=== PATIENT | male | born 1995 | race Caucasian/White ===

== ENCOUNTER 2022-03-06 17:44 | Emergency (ER) | payer BC, SELFPAY ==
[2022-03-06 17:59] VITALS: BP 145/99; PULSE 108; RESP 16; TEMP 36.8; O2SAT 98
--- NOTE | 2022-03-06 18:06 | ED.EAR ---
HPI - Ear Problem General Chief complaint: Ear Stated complaint: Sore Throat/ Ears Irritation Time Seen by Provider: 03/06/22 18:06 Source: patient Mode of arrival: ambulatory Limitations: no limitations History of Present Illness HPI Narrative: Brennan is a 27-year-old male patient presenting to clinic today with complaints of sore throat and ear pain x4 days. States he started to lose his voice this morning. Related Data Allergies Allergy/AdvReac Type Severity Reaction Status Date / Time No Known Allergies Allergy Mild Verified 03/06/22 18:07 Review of Systems Review of Systems: Pertinent positives per HPI. Patient denies any fever, chills, rash, headache, visual changes, dizziness, shortness of breath, chest pain, palpitations, nausea, vomiting, diarrhea, constipation, abdominal pain, or any urinary issues. PMFSH Comments At the time of my signature, I reviewed and agree with the nursing past medical, surgical, social, and family history. There is no relevant family history pertinent to the patient complaint. Exam Narrative: General: Well-developed, obese, in no apparent distress Head: Normocephalic, atraumatic Eyes: Pupils equally round and reactive to light bilaterally, EOM intact, sclera and conjunctive clear, no discharge, lids normal Ears: TMs intact and clear, ear canals clear, no drainage, grossly hearing normal. Nose: Nares patent, Clear nasal discharge, no inflammation, no sinus tenderness. Mouth: Oral pharynx without lesions or masses, good dentition, MMM. oropharynx red with bilateral tonsillar enlargement and exudate Neck: Supple, trachea midline, mild enlargement of anterior or posterior cervical nodes, no thyroid masses or goiter palpable. Cardio: Regular rate and rhythm, s1 and s2 normal, no murmur appreciated. Resp: Clear to auscultation bilaterally, no rhonchi, rales, wheezing or rubs Course Course Emergency Course: Portions of this record may have been created with voice recognition software. Level of Care: Express Care Visit Vital Signs Vital signs: Vital Signs Temperature 36.8 C 03/06/22 17:59 Pulse Rate 108 H 03/06/22 17:59 Respiratory Rate 16 03/06/22 17:59 Blood Pressure 145/99 H 03/06/22 17:59 Pulse Oximetry 98 03/06/22 17:59 Oxygen Delivery Room Air 03/06/22 17:59 Temperature 36.8 C 03/06/22 17:59 Pulse Rate 108 H 03/06/22 17:59 Respiratory Rate 16 03/06/22 17:59 Blood Pressure 145/99 H 03/06/22 17:59 Pulse Oximetry 98 03/06/22 17:59 Oxygen Delivery Room Air 03/06/22 17:59 Vital signs reviewed Medical Decision Making MDM Narrative Medical decision making narrative: At the time of the patient is resting comfortably on the exam table. strep screen was positive in the clinic today. Prescription for amoxicillin was sent to the pharmacy and supportive measures were discussed with the patient he voiced understanding discharge instructions agrees to treatment plan. Differential Diagnosis Differential Diagnosis: Otitis media, otitis externa, and upper respiratory infections, strep pharyngitis Vital Signs Vital Signs: Vital Signs Temperature 36.8 C 03/06/22 17:59 Pulse Rate 108 H 03/06/22 17:59 Respiratory Rate 16 03/06/22 17:59 Blood Pressure 145/99 H 03/06/22 17:59 Pulse Oximetry 98 03/06/22 17:59 Oxygen Delivery Room Air 03/06/22 17:59 Temperature 36.8 C 03/06/22 17:59 Pulse Rate 108 H 03/06/22 17:59 Respiratory Rate 16 03/06/22 17:59 Blood Pressure 145/99 H 03/06/22 17:59 Pulse Oximetry 98 03/06/22 17:59 Oxygen Delivery Room Air 03/06/22 17:59 Discharge Plan Discharge Clinical Impression: Strep pharyngitis Patient Disposition: Home, Self-Care Condition: Stable Instructions: Antibiotic Form, Strep Throat (ED) Additional Instructions: Strep screen was positive in the clinic today Take prescription medications only as prescribed- amoxicillin Change toothbrush in
== END 2022-03-06 18:12 | disposition home or self-care (01) ==
PROVIDERS: Emergency Provider Nurse Practitioner Family; PCP Family Medicine Sports Medicine
DX: J02.0 Streptococcal pharyngitis (principal)
CPT/HCPCS: 87880; 99213; G0463

== ENCOUNTER 2022-12-20 10:38 | Emergency (ER) | payer BC, SELFPAY ==
[2022-12-20 10:53] VITALS: BP 139/92; PULSE 118; RESP 24; TEMP 36.9; O2SAT 97
--- NOTE | 2022-12-20 11:40 | ED.URI ---
HPI - URI/Sore Throat General Chief Complaint: Upper Respiratory Infection Stated Complaint: feeling run down hard to breathe Time Seen by Provider: 12/20/22 11:18 Source: patient and RN notes reviewed Mode of arrival: ambulatory Limitations: no limitations History of Present Illness HPI Narrative: Patient presents today complaining of fever up to 104, nasal congestion, fatigue since yesterday. Denies cough, sore throat. Denies known sick contacts. He has been taking DayQuil, NyQuil, and vitamin-C with mild relief. Denies history of asthma or COPD. He is a nonsmoker. Related Data Allergies Allergy/AdvReac Type Severity Reaction Status Date / Time No Known Allergies Allergy Mild Verified 03/06/22 18:07 Review of Systems Review of Systems: CONSTITUTIONAL: Denies body aches, chills, or sweats.+ fever, fatigue EYES: Denies visual changes, redness, or discharge. ENT: Denies rhinorrhea, sore throat, or otalgia.+ congestion CARDIOVASCULAR: Denies chest pain, palpitations, or edema. RESPIRATORY: Denies cough or dyspnea. GASTROINTESTINAL: Denies abdominal pain, nausea, vomiting, or diarrhea. GENITOURINARY: Denies dysuria or hematuria. SKIN: Denies rash, itching, or wounds. MUSCULOSKELETAL: Denies back pain, joint pain, or myalgia. NEUROLOGIC: Denies headache, numbness, tingling, or weakness. PSYCH: Denies depression or anxiety. PMFSH Comments At time of signature, I have reviewed and agree with nursing past medical, surgical, social and family history unless otherwise noted. Please see nursing chart for further information. There is no relevant family history pertinent to the presenting complaint Exam Narrative: GENERAL: Mildly ill-appearing, well-nourished, and in no acute distress. HEAD: Normocephalic, atraumatic. EYES: EOMI. No redness or drainage. Conjunctivae normal. ENT: Mucous membranes pink and moist. Nares congested. No rhinorrhea. TMs normal bilaterally. Throat erythematous, mildly edematous with exudate. Tonsils 3+. Uvula midline. NECK: Normal AROM. Supple. No lymphadenopathy. CHEST: No respiratory distress. Clear to auscultation. HEART: Regular rhythm. + t tachycardia. No murmur appreciated. Normal peripheral pulses. EXTREMITIES: Normal range of motion. No edema. SKIN: Warm, dry, no rash. Capillary refill normal. Normal skin turgor. NEURO: No focal deficits. Alert and oriented x3. Gait steady. PSYCH: Normal affect. No signs of depression or anxiety. Course Course Level of Care: Express Care Visit Vital Signs Vital signs: Vital Signs Temperature 98.4 F 12/20/22 10:53 Pulse Rate 118 H 12/20/22 10:53 Respiratory Rate 24 H 12/20/22 10:53 Blood Pressure 139/92 H 12/20/22 10:53 Pulse Oximetry 97 12/20/22 10:53 Oxygen Delivery Room Air 12/20/22 10:53 Temperature 98.4 F 12/20/22 10:53 Pulse Rate 118 H 12/20/22 10:53 Respiratory Rate 24 H 12/20/22 10:53 Blood Pressure 139/92 H 12/20/22 10:53 Pulse Oximetry 97 12/20/22 10:53 Oxygen Delivery Room Air 12/20/22 10:53 Reviewed. Patient was not tachypnea during my exam. MDM - URI/Sore Throat MDM Narrative Medical decision making narrative: Rapid strep positive. COVID and influenza are negative. Prescription for amoxicillin sent to pharmacy. Anticipatory guidance given. Differential Diagnosis Differential diagnosis: Likely upper respiratory infection, viral infection, influenza and other (COVID-19, strep throat) Lab Data Attestation: I reviewed the patient's lab results. Labs: Influenza A Screen Negative Reference Range: Negative Influenza B Screen Negative Reference Range: Negative Strep Screen Positive Group A Strep *(Reference Range: Negative)* Critical Care Time Critical Care Time Critical Care Time: No Disc
== END 2022-12-20 11:45 | disposition home or self-care (01) ==
PROVIDERS: Emergency Provider Nurse Practitioner; PCP Family Medicine
DX: J02.0 Streptococcal pharyngitis (principal); Z20.822 Contact with and (suspected) exposure to COVID-19
CPT/HCPCS: 87426; 87804; 87880; 99213; C9803; G0463

== ENCOUNTER 2024-05-01 11:02 | Emergency (ER) | payer OTHER, SELFPAY ==
[2024-05-01 11:18] VITALS: BP 145/87; PULSE 105; RESP 16; TEMP 36.8; O2SAT 98
--- NOTE | 2024-05-01 11:35 | ED_ITS ---
HPI - Nausea/Vomiting/Diarrhea General Chief complaint: Nausea/Vomiting/Diarrhea Stated complaint: diarrhea,throwing up,fever, sore Time Seen by Provider: 05/01/24 11:03 Source: patient Mode of arrival: ambulatory Limitations: no limitations History of Present Illness HPI Narrative: 29-year-old male presents to [facility] with complaints of fatigue, intermittent nausea, vomiting, diarrhea and low-grade fevers since yesterday. Patient reports that his son had similar symptoms last week. Patient reports that he is able to tolerate water. Patient reports that he has vomited 1 time and has had 4-5 diarrhea stools since onset of symptoms. Patient denies abdominal pain, urinary symptoms,sore throat, congestion, cough, shortness of breath or wheezing. Patient denies recent travel. Patient is nonsmoker. MD elicited complaint: vomiting and diarrhea Onset (ago): day(s) (1) Associated nausea: Yes Associated abdominal pain: No Location of pain: none Related Data Allergies Allergy/AdvReac Type Severity Reaction Status Date / Time No Known Allergies Allergy Mild Verified 05/01/24 11:11 Review of Systems Constitutional: Constitutional: Denies chills, Denies fatigue, Reports fever(s) and Denies weakness ENT: Denies dizziness, Denies nasal congestion and Denies sore throat Respiratory: Respiratory: Denies cough, Denies dyspnea and Denies wheezing Gastrointestinal: Gastrointestinal: Denies abdominal pain, Reports diarrhea, Reports nausea and Reports vomiting Musculoskeletal: Musculoskeletal: Denies arthralgias and Denies joint swelling Integumentary/Breasts: Skin/Breast: Denies pruritus, Denies erythema and Denies rash Neurologic: Denies vertigo, Denies dizziness, Denies syncope and Denies focal weakness PMFSH Comments At time of signature, I agree with nursing past medical, surgical, social and family history. There is no relevant family history pertinent to the presenting complaint. Exam Const: General: healthy appearing and no acute distress Nutritional Appearance: well nourished Orientation/consciousness: patient oriented x3 Limitations: no limitations Eyes: Conjunctivae: conjunctivae normal Neck: Neck: normal visual inspection Resp: Effort & Inspection: normal respiratory effort and not labored Auscultation: clear to auscultation bilaterally, no crackles, no rales, no rhonchi and no wheezes Cardio: Rate: regular rate Rhythm: regular rhythm Heart sounds: no murmurs GI: Inspection: non-distended GI Palp: Yes Soft to palpation, No Tenderness to palpation present (GI), No Guarding due to palpation present (GI) and No Rigid due to palpation : General: Yes bladder normal to palpation and Yes no CVA tenderness Skin: General skin exam: normal color Rashes: no rashes Wounds: no wounds Neuro: General: patient oriented x3 and moves all extremities Speech: normal speech Gait exam (Neuro): Normal gait present Extrem: General: normal to inspection Psych: Affect: normal affect Attitude: cooperative Course Course Level of Care: Express Care Visit Vital Signs Vital signs: Vital Signs Temperature 36.8 C 05/01/24 11:18 Pulse Rate 105 H 05/01/24 11:18 Respiratory Rate 16 05/01/24 11:18 Blood Pressure 145/87 H 05/01/24 11:18 Pulse Oximetry 98 05/01/24 11:18 Oxygen Delivery Room Air 05/01/24 11:18 Temperature 36.8 C 05/01/24 11:18 Pulse Rate 105 H 05/01/24 11:18 Respiratory Rate 16 05/01/24 11:18 Blood Pressure 145/87 H 05/01/24 11:18 Pulse Oximetry 98 05/01/24 11:18 Oxygen Delivery Room Air 05/01/24 11:18 MDM - Nausea/Vomiting/Diarrhea MDM Narrative Medical decision making narrative: discussed negative influenza results with patient. Encouraged patient to increase fluids and to take sips every 5-10 minutes reviewing dehydration. Patient understands importance of monitoring symptoms closely and agrees proceed to the emergency room if symptoms worsen Differential Diagnosis Differential diagnosis: Likely gastroenteritis, dehydration and other ( Bacterial illness) Lab Data Labs: negative influenza results Critical Care Time Critical Care Time Critical Care Time: No Discharge Plan Discharge Clinical Impression: Nausea & vomiting Qualifiers: Vomiting type: unspecified Qualified Code(s): R11.2 - Nausea with vomiting, unspecified Patient Disposition: Home, Self-Care Condition: Stable Instructions: Acute Nausea and Vomiting (ED) Additional Instructions: sips of fluids every 5-10 minutes to prevent dehyration Take Zofran as needed for nauesea Monitor symptoms closely and proceed to the emergency room if symptoms worsen Patient Language: Slovenian Prescriptions: New ondansetron 4 mg tablet,disintegrating 4 mg PO Q6H PRN (Reason: nausea and vomiting) Qty: 14 0RF Follow-up/Referrals: Rashida,Dmitriy Shine MD [Primary Care Provider] - Time of Disposition: 11:45
[2024-05-01 11:57] LABS: EDINFLUASCREEN Negative (Negative); EDINFLUBSCREEN Negative (Negative)
== END 2024-05-01 11:48 | disposition home or self-care (01) ==
PROVIDERS: Emergency Provider Nurse Practitioner Family; PCP Family Medicine
DX: R11.2 Nausea with vomiting, unspecified (principal)
CPT/HCPCS: 87804; 99213; G0463

== ENCOUNTER 2024-05-02 06:19 | Emergency (ER) | payer OTHER, SELFPAY ==
--- NOTE | 2024-05-02 06:22 | ECG_ITS ---
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
[2024-05-02 06:38] VITALS: BP 130/94; PULSE 124; RESP 26; TEMP 36.8; O2SAT 98
[2024-05-02 06:43] LABS: Basophils Percent Auto 0.2 % (0.2-1.2); Hematocrit 44.6 % (42.0-52.0); Hemoglobin 15.1 g/dL (14.0-18.0); Immature Granulocyte Absolute 0.04 K/mm3 (0.00-0.031); Immature Granulocyte Percent A 0.4 % (0-0.5); Lymphocytes Absolute Auto 1.02 K/mm3 (0.9-3.2); Lymphocytes Percent Auto 9.3 % (18.3-44.2); Mean Corpuscular HGB Conc 33.9 g/dl (32-36); Mean Corpuscular Volume 85.8 fl (80-100); Mean Platelet Volume 10.4 fl (7.4-10.4); Monocytes Percent Auto 9.1 % (2.6-8.5); Neutrophils Absolute Auto 8.9 K/mm3 (1.3-6.7); Platelet Count Result 208 k/mm3 (150-375); Red Cell Distribution Width 12.7 % (11.5-14.5); White Blood Count 10.9 K/mm3 (4.5-10.0)
--- NOTE | 2024-05-02 06:52 | PC.NURSE ---
Patient states that he has not taken his Zofran that was prescribed to him from his last visit nor has he taken any medication for any fevers.
[2024-05-02 06:53] LABS: Alanine Aminotransferase 49 U/L (6-50); Albumin Level 4.2 g/dL (3.5-5.1); Alkaline Phosphatase 75 U/L (38-126); Anion Gap 16 mmol/L (4-12); Aspartate Amino Transferase 49 U/L (17-59); Blood Urea Nitrogen 17 mg/dL (9-20); Calcium 9.1 mg/dL (8.4-10.2); Carbon Dioxide 21 mmol/L (22-30); Chloride 101 mmol/L (98-107); Estimated CRCL calculation 109 ml/min; Estimated Glomerular Filt Rate > 60; Glucose 148 mg/dL (65-110); Lipase 566 U/L (23-300); Potassium 3.8 mmol/L (3.4-5.0); Sodium 138 mmol/L (137-145)
[2024-05-02 07:17] VITALS: BP 125/81; BP 131/98; BP 135/83; PULSE 102; PULSE 112; PULSE 121
[2024-05-02 07:18] LABS: Influenza A QL RT-PCR Negative (Negative); Influenza B QL RT-PCR Negative (Negative); RSV RNA, RT-PCR Negative (Negative); SARS-CoV-2 RNA PCR Negative (Negative)
[2024-05-02 07:30] VITALS: BP 125/81; PULSE 105; RESP 20; O2SAT 97
--- NOTE | 2024-05-02 07:37 | ED.GENADULT ---
HPI - General Adult General Chief complaint: Nausea/Vomiting/Diarrhea Stated complaint: dehydration Time Seen by Provider: 05/02/24 06:53 History of Present Illness HPI narrative: 29-year-old male present to the emergency department for evaluation for 3 days of nausea vomiting diarrhea. Patient reports symptoms started approximately 3 days ago and he was having nausea vomiting and diarrhea but states over the last 24 hours he has had decreased emesis. Patient did have follow-up with urgent care and was provided Zofran for nausea control and states that this has help with emesis but he still having a lot of diarrhea. Patient does complain of having some lightheaded dizziness and suspects he is dehydrated. Patient was told to present to the emergency department for evaluation if he feels he is dehydrated. Related Data Allergies Allergy/AdvReac Type Severity Reaction Status Date / Time No Known Allergies Allergy Mild Verified 05/02/24 06:47 Review of Systems Review of Systems: All systems reviewed & are unremarkable except as noted in HPI and below Exam Narrative: APPEARANCE: Ill-appearing HEAD: normocephalic, atraumatic. EYES: PERRLA/EOMI, conjunctivae clear. NOSE: Normal no drainage EARS:TMS clear with good light reflex. THROAT: Pharynx clear, no exudate. NECK: Supple. No adenopathy, no masses. RESPIRATORY: Airway patent, respirations nonlabored. Clear to auscultation bilaterally, no rales, rhonchi, wheezing. CARDIOVASCULAR: Regular rate and rhythm without murmurs rubs or gallops. ABDOMINAL: Soft, nontender, nondistended, normal bowel sounds MUSCULOSKELETAL: Moves all extremities. Strength/ROM intact, No edema, No calf tenderness. NEURO: Alert. Cranial nerves II through XII intact. Grossly intact Course Vital Signs Vital signs: Vital Signs Temperature 98.3 F 05/02/24 06:38 Pulse Rate 124 H 05/02/24 06:38 Respiratory Rate 26 H 05/02/24 06:38 Blood Pressure 130/94 H 05/02/24 06:38 Pulse Oximetry 98 05/02/24 06:38 Temperature 98.3 F 05/02/24 06:38 Pulse Rate 87 05/02/24 10:48 Respiratory Rate 20 05/02/24 10:48 Blood Pressure 144/87 H 05/02/24 10:48 Pulse Oximetry 100 05/02/24 10:48 Medical Decision Making [facility] Narrative Medical decision making narrative: 29-year-old male presents emergency department for evaluation for nausea vomiting and diarrhea. Patient was tachycardic on arrival with a heart rate of 124 and a blood pressure of 130/94. Patient is afebrile but does have a white count of 10.9 hemoglobin of 15.1. Patient has no significant abnormalities on his CMP, patient's lipase is elevated at 566 but patient has no abdominal tenderness to palpation. Patient was negative for influenza RSV and COVID. Patient was treated with 2 L IV fluid did feel improved. Patient's heart rate was improved. Patient has made urine the emergency department. Patient does already have Zofran prescribed for him at home. Patient was comfortable plan for discharge and close follow-up. Differential Diagnosis Differential Diagnosis: COVID, RSV, influenza, nausea vomiting diarrhea, dehydration Vital Signs Vital Signs: Vital Signs Temperature 98.3 F 05/02/24 06:38 Pulse Rate 124 H 05/02/24 06:38 Respiratory Rate 26 H 05/02/24 06:38 Blood Pressure 130/94 H 05/02/24 06:38 Pulse Oximetry 98 05/02/24 06:38 Temperature 98.3 F 05/02/24 06:38 Pulse Rate 87 05/02/24 10:48 Respiratory Rate 20 05/02/24 10:48 Blood Pressure 144/87 H 05/02/24 10:48 Pulse Oximetry 100 05/02/24 10:48 Lab Data Lab results reviewed: Yes I reviewed the patient's lab results. 05/02/24 06:25 05/02/24 06:25 Labs: Lab Results 05/02/24 05/02/24 Range/Units 06:25 07:57 WBC 10.9 H (4.5-10.0) K/mm3 RBC 5.20 (4.6-6.20) M/mm3 Hgb 15.1 (14.0-18.0) g/dL Hct 44.6 (42.0-52.0) % MCV 85.8 (80-100) fl MCH 29.0 (26-34) pg MCHC 33.9 (32-36) g/dl RDW 12.7 (11.5-14.5) % Plt Count 208 (150-375) k/mm3 MPV 10.4 (7.4-10.4) fl Immature Gran % (Auto) 0.4 (0-0.5) % Neut % (Auto) 81.0 H (45.5-73.1) % Lymph % (Auto) 9.3 L (18.3-44.2) % [place] % (Auto) 9.1 H (2.6-8.5) % Eos % (Auto) 0.0 (0-4.4) % Baso % (Auto) 0.2 (0.2-1.2) % Lymph # (Auto) 1.02 (0.9-3.2) K/mm3 [place] # (Auto) 1.0 H (0.1-0.6) K/mm3 Eos # (Auto) 0.0 (0-0.3) K/mm3 Baso # (Auto) 0.0 (0.0-0.1) K/mm3 Abs Immat Gran (auto) 0.04 H (0.00-0.031) K/mm3 Absolute Neuts (auto) 8.9 H (1.3-6.7) K/mm3 Absolute Nucleated RBC 0.000 (0.0-0.012) K/mm3 Nucleated RBC % 0.0 (0.0-0.2) % Sodium 138 (137-145) mmol/L Potassium 3.8 (3.4-5.0) mmol/L Chloride 101 (98-107) mmol/L Carbon Dioxide 21 L (22-30) mmol/L Anion Gap 16 H (4-12) mmol/L BUN 17 (9-20) mg/dL Creatinine 1.30 (0.7-1.3) mg/dL Estim Creat Clear Calc 109 ml/min Estimated GFR > 60 (59 - ) Glucose 148 H (65-110) mg/dL Calcium 9.1 (8.4-10.2) mg/dL Total Bilirubin 1.0 (0.2-1.3) mg/dL AST 49 (17-59) U/L ALT 49 (6-50) U/L Alkaline Phosphatase 75 (38-126) U/L Total Protein 8.0 (6.3-8.2) g/dL Albumin 4.2 (3.5-5.1) g/dL Lipase 566 H (23-300) U/L Urine Color Dark yellow (Yellow) Urine Appearance Clear (Clear) Urine pH 6.0 (5.0-9.0) Ur Specific [place] 1.044 H (1.001-1.035) Urine Protein 4+ H (Negative) mg/dL Urine Glucose (UA) Negative (Negative) mg/dL Urine Ketones 2+ H (Negative) mg/dL Ur Blood (Man) 1+ H (Negative) Urine Nitrate Negative (Negative) Urine Bilirubin 1+ H (Negative) Urine Urobilinogen 2.0 H (<2.0) mg/dL Add Ur Microanalysis Reviewed Leukocyte Esterase Rfl Trace H (Negative) YOVANY/UL Urine RBC 3-5 H (0-2) /hpf Urine WBC 0-5 (0-3) /hpf Ur Squamous Epith Cells Occasional (Few) /hpf Urine Bacteria None seen /hpf Urine Casts 0-2 Influenza A (RT-PCR) Negative (Negative) Influenza B (RT-PCR) Negative (Negative) RSV (RT-PCR) Negative (Negative) SARS-CoV-2 RNA (RT-PCR) Negative (Negative) Discharge Plan Discharge Clinical Impression: Nausea vomiting and diarrhea, Hematuria Patient Disposition: Home, Self-Care Condition: Stable Instructions: Antibiotic Form, Clear Liquid Diet (ED), Acute Nausea and Vomiting (ED) Additional Instructions: Clear liquid diet for the next 1-3 days. Zofran as needed for nausea control. Have close follow-up with your primary care physician. If you have any worsening symptoms then please call or return to the emergency department. You did have some blood in your urine, have close follow-up with Urology and your primary care physician. Patient Language: Fijian Prescriptions: No Action ondansetron 4 mg tablet,disintegrating 4 mg PO Q6H PRN (Reason: nausea and vomiting) Qty: 14 0RF Follow-up/Referrals: Rashida,Dmitriy Shine MD [Primary Care Provider] - Buddy Quintana MD [Physician] -
[2024-05-02] MEDS: LACTATED RINGERS 1,000 ML 999 ML IV CONT ×2 (07:55→09:42)
[2024-05-02 08:18] LABS: Add Urine Microscopic? YES; Appearance Urine Clear (Clear); Bacteria Urine None Seen /hpf; Bilirubin Urine 1+ (Negative); Blood Urine 1+ (Negative); Color Urine Dark Yellow (Yellow); Glucose Urine UA Negative (Negative); Ketones Urine 2+ mg/dL (Negative); Leukocyte Esterase Ur Trace LEU/UL (Negative); Need Manual Microscopic Reviewed; Nitrate Urine Negative (Negative); Non Pathogenic Casts 0-2; Protein Urine 4+ mg/dL (Negative); Specific Grav Ur 1.044 (1.001-1.035); Squamous Epithelial Cell Urine Occasional /hpf (Few); WBC Urine 0-5 /hpf (0-3)
[2024-05-02 10:48] VITALS: BP 144/87; PULSE 87; RESP 20; O2SAT 100
== END 2024-05-02 10:50 | disposition home or self-care (01) ==
PROVIDERS: Student in an Organized Health Care Education/Training Program; Emergency Provider Emergency Medicine; PCP Family Medicine
DX: R11.2 Nausea with vomiting, unspecified (principal); R19.7 Diarrhea, unspecified; R31.9 Hematuria, unspecified; Z20.822 Contact with and (suspected) exposure to COVID-19; R00.0 Tachycardia, unspecified
CPT/HCPCS: 36415; 80053; 81001; 83690; 85025; 87637; 93005; 96360; 96361; 99283; J7120